=== PATIENT | female | born 1975 | race Caucasian/White ===

== ENCOUNTER 2018-07-11 10:51 | Emergency (ER) | payer SELFPAY ==
[2018-07-11] MEDS ORDERED: ONDA4TAB97 PO (10:57)
[2018-07-11] MEDS ORDERED: CLON0.5T66 PO (10:57)
[2018-07-11] MEDS ORDERED: [UNRECOGNIZED DRUG - OTHER] (11:00)
--- NOTE | 2018-07-11 11:04 | ER Report ---
History and Physical Time Seen By MD: 11:04 Hx. of Stated Complaint: PANIC ATTACK UNRELIEVED BY HOME KLONIPIN HPI/ROS CHIEF COMPLAINT: Abdominal pain, vomiting HISTORY OF PRESENT ILLNESS: 42-year-old female patient presents to emergency room with complaint of abdominal pain, vomiting. Patient states that she's been having this pain since 7:00 this morning. She states it came on very suddenly. She states is nothing that seems to make the pain better or worse. She states she did have some nausea as well as one episode of emesis. She states that she is currently traveling through town as she is from [place]. She denies having any fevers or chills. She states that she's having significant amounts of pain which she rates a 7 out of 10. Patient also is feeling very very anxious likely related to the abdominal pain. She states that she did try some Klonopin at home, however that did not seem to help with her symptoms. REVIEW OF SYSTEMS: Respiratory: No cough, no dyspnea. Cardiovascular: No chest pain, no palpitations. Gastrointestinal: As noted above Musculoskeletal: No back pain. Allergies: Coded Allergies: metoclopramide (Verified Allergy, Intermediate, ANXIETY , 07/11/18) Home Meds Active Scripts Ondansetron (ZOFRAN ODT) 4 Mg Tab.rapdis, 4 MG PO Q6H PRN for NAUSEA/VOMITING, #20 TAB.HEATH Prov:ROLANDA PRAJAPATIP 07/11/18 Reported Medications [Kratum] No Conflict Check 07/11/18 Ondansetron Hcl (ZOFRAN) 4 Mg Tablet, 4 MG PO Q12H, TAB 07/11/18 Clonazepam (KLONOPIN) 0.5 Mg Tablet, 0.5 MG PO BID, #10 TAB 07/11/18 Past Medical/Surgical History Patient has a past medical history of back pain. Patient has a surgical history of back surgery 4, tonsillectomy, hysterectomy, cholecystectomy. Reviewed Nurses Notes: Yes Constitutional Vital Sign - Last 24 Hours 07/11/18 07/11/18 07/11/18 07/11/18 10:54 11:07 11:23 11:25 Temp 98.9 Pulse 83 Resp 18 B/P (MAP) 150/95 121/65 (83) 136/76 (96) 126/94 (105) Pulse Ox 97 O2 Delivery Room Air 07/11/18 07/11/18 07/11/18 07/11/18 11:30 11:35 11:40 11:45 Pulse ??? Resp 25 B/P (MAP) 121/77 (92) 119/82 (94) 120/75 (90) 117/78 (91) 07/11/18 07/11/18 07/11/18 07/11/18 11:50 11:55 12:00 12:05 Pulse 105 Resp 14 B/P (MAP) 113/79 (90) 114/78 (90) 114/78 (90) 113/78 (90) 07/11/18 07/11/18 07/11/18 07/11/18 12:10 12:15 12:20 12:25 B/P (MAP) 112/82 (92) 112/79 (90) 119/68 (85) 109/80 (90) 07/11/18 12:30 Pulse 109 Resp 25 B/P (MAP) 114/82 (93) Physical Exam General Appearance: The patient is anxious, she is unable to sit still, she repeatedly grabs my hands during the examination, has no immediate need for airway protection and no current signs of toxicity. Respiratory: Chest is non tender, lungs are clear to auscultation. Cardiac: regular rate and rhythm Gastrointestinal: Abdomen is soft and tender in the left lower quadrant, no masses, bowel sounds normal. Musculoskeletal: Neck: Neck is supple and non tender. Extremities have full range of motion and are non tender. Skin: No rashes or lesions. DIFFERENTIAL DIAGNOSIS: After history and physical exam differential diagnosis was considered for abdominal pain including but not limited to appendicitis, cholecystitis, gastritis and urinary tract infection. Medical Decision Making Data Points Result Diagram: 07/11/18 1230 07/11/18 1230 Laboratory Hematology Test 07/11/18 12:30 07/11/18 12:35 Red Blood Count 4.77 M/uL (4.17-5.56) Mean Corpuscular Volume 87.8 fL (80.0-96.0) Mean Corpuscular Hemoglobin 30.0 pg (26.0-33.0) Mean Corpuscular Hemoglobin Concent 34.1 g/dL (32.0-36.0) Red Cell Distribution Width 15.0 % (11.5-14.5) Mean Platelet Volume 7.5 fL (7.2-11.1) Neutrophils (%) (Auto) 81.3 % (39.4-72.5) Lymphocytes (%) (Auto) 13.1 % (17.6-49.6) Monocytes (%) (Auto) 5.0 % (4.1-12.4) Eosinophils (%) (Auto) 0.1 % (0.4-6.7) Basophils (%) (Auto) 0.5 % (0.3-1.4) Nucleated RBC Relative Count (auto) 0.0 /100WBC Neutrophils # (Auto) 6.6 K/uL (2.0-7.4) Lymphocytes # (Auto) 1.1 K/uL (1.3-3.6) Monocytes # (Auto) 0.4 K/uL (0.3-1.0) Eosinophils # (Auto) 0.0 K/uL (0.0-0.5) Basophils # (Auto) 0.0 K/uL (0.0-0.1) Nucleated RBC Absolute Count (auto) 0.00 K/uL Sodium Level 134 mmol/L (137-145) Potassium Level 3.8 mmol/L (3.5-5.0) Chloride Level 98 mmol/L (98-107) Carbon Dioxide Level 28 mmol/L (22-31) Blood Urea Nitrogen 6 mg/dl (7-18) Creatinine 0.60 mg/dl (0.52-1.04) Glomerular Filtration Rate Calc > 60.0 Random Glucose 101 mg/dl (75-110) Calcium Level 7.8 mg/dl (8.4-10.2) Total Bilirubin 0.5 mg/dl (0.2-1.3) Aspartate Amino Transf (AST/SGOT) 30 U/L (0-35) Alanine Aminotransferase (ALT/SGPT) 25 U/L (0-56) Alkaline Phosphatase 127 U/L (0-126) Total Protein 6.7 g/dl (6.3-8.2) Albumin 3.8 g/dl (3.5-5.0) Amylase Level 89 U/L (0-110) Lipase 75 U/L (23-300) Urine Color Yellow Urine Clarity Cloudy Urine pH 8.0 pH (4.8-9.5) Urine Specific Michie 1.042 Urine Protein Negative mg/dL (NEGATIVE) Urine Glucose (UA) Negative mg/dL (NEGATIVE) Urine Ketones 20 mg/dL (NEGATIVE) Urine Blood Negative (NEGATIVE) Urine Nitrite Negative (NEGATIVE) Urine Bilirubin Negative (NEGATIVE) Urine Urobilinogen Negative mg/dL (0.2-1.9) Urine Leukocyte Esterase Negative (NEGATIVE) Urine RBC 2 /HPF (0-2/HPF) Urine WBC 1 /HPF (0-5/HPF) Urine Squamous Epithelial Cells Many /LPF (</=FEW) Urine Bacteria Negative /HPF (NONE-FEW) Urine Mucus None /HPF (NONE-FEW) Chemistry Test 07/11/18 12:30 07/11/18 12:35 White Blood Count 8.1 k/uL (4.5-11.0) Red Blood Count 4.77 M/uL (4.17-5.56) Hemoglobin 14.3 g/dL (12.0-16.0) Hematocrit 41.9 % (34.0-47.0) Mean Corpuscular Volume 87.8 fL (80.0-96.0) Mean Corpuscular Hemoglobin 30.0 pg (26.0-33.0) Mean Corpuscular Hemoglobin Concent 34.1 g/dL (32.0-36.0) Red Cell Distribution Width 15.0 % (11.5-14.5) Platelet Count 349 K/uL (150-450) Mean Platelet Volume 7.5 fL (7.2-11.1) Neutrophils (%) (Auto) 81.3 % (39.4-72.5) Lymphocytes (%) (Auto) 13.1 % (17.6-49.6) Monocytes (%) (Auto) 5.0 % (4.1-12.4) Eosinophils (%) (Auto) 0.1 % (0.4-6.7) Basophils (%) (Auto) 0.5 % (0.3-1.4) Nucleated RBC Relative Count (auto) 0.0 /100WBC Neutrophils # (Auto) 6.6 K/uL (2.0-7.4) Lymphocytes # (Auto) 1.1 K/uL (1.3-3.6) Monocytes # (Auto) 0.4 K/uL (0.3-1.0) Eosinophils # (Auto) 0.0 K/uL (0.0-0.5) Basophils # (Auto) 0.0 K/uL (0.0-0.1) Nucleated RBC Absolute Count (auto) 0.00 K/uL Glomerular Filtration Rate Calc > 60.0 Calcium Level 7.8 mg/dl (8.4-10.2) Total Bilirubin 0.5 mg/dl (0.2-1.3) Aspartate Amino Transf (AST/SGOT) 30 U/L (0-35) Alanine Aminotransferase (ALT/SGPT) 25 U/L (0-56) Alkaline Phosphatase 127 U/L (0-126) Total Protein 6.7 g/dl (6.3-8.2) Albumin 3.8 g/dl (3.5-5.0) Amylase Level 89 U/L (0-110) Lipase 75 U/L (23-300) Urine Color Yellow Urine Clarity Cloudy Urine pH 8.0 pH (4.8-9.5) Urine Specific Michie 1.042 Urine Protein Negative mg/dL (NEGATIVE) Urine Glucose (UA) Negative mg/dL (NEGATIVE) Urine Ketones 20 mg/dL (NEGATIVE) Urine Blood Negative (NEGATIVE) Urine Nitrite Negative (NEGATIVE) Urine Bilirubin Negative (NEGATIVE) Urine Urobilinogen Negative mg/dL (0.2-1.9) Urine Leukocyte Esterase Negative (NEGATIVE) Urine RBC 2 /HPF (0-2/HPF) Urine WBC 1 /HPF (0-5/HPF) Urine Squamous Epithelial Cells Many /LPF (</=FEW) Urine Bacteria Negative /HPF (NONE-FEW) Urine Mucus None /HPF (NONE-FEW) Urinalysis Test 07/11/18 12:35 Urine Color Yellow Urine Clarity Cloudy Urine pH 8.0 pH (4.8-9.5) Urine Specific Michie 1.042 Urine Protein Negative mg/dL (NEGATIVE) Urine Glucose (UA) Negative mg/dL (NEGATIVE) Urine Ketones 20 mg/dL (NEGATIVE) Urine Blood Negative (NEGATIVE) Urine Nitrite Negative (NEGATIVE) Urine Bilirubin Negative (NEGATIVE) Urine Urobilinogen Negative mg/dL (0.2-1.9) Urine Leukocyte Esterase Negative (NEGATIVE) Urine RBC 2 /HPF (0-2/HPF) Urine WBC 1 /HPF (0-5/HPF) Urine Squamous Epithelial Cells Many /LPF (</=FEW) Urine Bacteria Negative /HPF (NONE-FEW) Urine Mucus None /HPF (NONE-FEW) EKG/Imaging Imaging COMPUTED TOMOGRAPHY OF THE Abdomen and Pelvis with CONTRAST INDICATION: Abdominal pain. TECHNIQUE: Contiguous axial 3.[address] images were obtained through the abdomen and pelvis with [id number]. Coronal and sagittal reformatted images were submitted. COMPARISON: None. FINDINGS: Lung bases: Clear Liver and hepatic vasculature: No focal liver lesion. Mild fatty infiltration adjacent to falciform. No ascites. Gallbladder and bile ducts: Surgically absent gallbladder. Prominence of the common bile duct in keeping with cholecystectomy. There is also mild intrahepatic biliary duct dilation. An obstructive mass or stone is not identified. Spleen: Normal Pancreas: Normal Adrenals: Normal Kidneys, ureters and bladder: Nonobstructive 3-4 mm left renal calculus versus cortical calcification. Symmetric renal enhancement. No hydronephrosis. Normal- appearing bladder. Retroperitoneum and aorta: Mild aortic atherosclerosis. No aneurysm. No intraperitoneal adenopathy. GI tract, mesentery and peritoneum: Part of the abdomen is blurred by motion including the right lower quadrant, but the appendix appears normal. No free fluid or free air. Uterus and adnexa: Surgically absent uterus. Bones and soft tissues: No acute osseous abnormality. Anterior fusion hardware spans L5-S1, and there is also a device between the spinous processes at this level. IMPRESSION: The source of acute abdominal pain is not forthcoming. One of the following dose optimization techniques was utilized in the performance of this exam: Automated exposure control; adjustment of the mA and/or kV according to the patient's size; or use of an iterative reconstruction technique. Specific details can be referenced in the facility's radiology CT exam operational policy. Report Dictated By: Silverio Carmen MD at 07/11/2018 12:20 PM Report E-Signed By: Silverio Carmen MD at 07/11/2018 12:28 PM ED Course/Re-evaluation ED Course Patient was medicated exam room, history and physical were obtained. Differential diagnoses were considered. On examination patient was very anxious, she continued, hamstring the evaluation. An IV was started, CBC, CMP and urinalysis were done. A CT scan of abdomen and pelvis was done as she is complaining of significant abdominal pain. Although there was no obvious abdominal pain on my physical exam. The lab results were unremarkable, the CT scan of abdomen and pelvis was negative. Discuss findings with the patient. I discussed with her that I believe that she was likely withdrawing from opioids. She states that she had felt that as well and did take Kratom home this morning to see if that would help. She states that did not seem to help. I discussed with her that I was going to let her go home although was going to send her with a prescription for some nausea medication. Patient requested that she be admitted to the hospital and allowed stay overnight to help that she felt she is not ready. I discussed with her that I did not find any admittable diagnosis. She requested something more for anxiety. Patient does have a prescription of Klonopin I did not feel that it was appropriate to prescribe more benzodiazepines at this time. She is to follow-up with her primary care provider upon returning to [place]. Patient verbalized understanding of plan. Decision to Disposition Date: Jul 11, 2018 Decision to Disposition Time: 12:59 Depart Departure Latest Vital Signs Vital Signs Date Time Temp Pulse Resp B/P (MAP) Pulse Ox O2 Delivery O2 Flow Rate FiO2 07/11/18 12:30 109 25 114/82 (93) 07/11/18 10:54 98.9 97 Room Air Impression: Primary Impression: Gastroenteritis Condition: Improved Disposition: HOME OR SELF-CARE New Scripts Ondansetron (ZOFRAN ODT) 4 Mg Tab.rapdis 4 MG PO Q6H PRN for NAUSEA/VOMITING, #20 TAB.HEATH Prov: ROLANDA PRAJAPATI 07/11/18 Patient Instructions: Gastroenteritis (ED) Additional Instructions: Increase fluid intake. Clear liquid diet for the next 24-48 hours. After that you may advance diet as tolerated starting with complex carbohydrates; rice, bread or pasta. Follow up with your primary care provider in the next week. Return to the ER if condition worsens. You may take over the counter Pepto Bismol as needed for cramping, diarrhea and discomfort. ROLANDA PRAJAPATI Jul 11, 2018 11:04
[2018-07-11] MEDS ORDERED: NS(*) 0.9% 1000 ML BAG 1,000 ML IV ONE (11:11)
[2018-07-11] MEDS ORDERED: ONDANSETRON 4 MG/2 ML VIAL IVP ONE (11:15)
[2018-07-11] MEDS ORDERED: KETOROLAC 15 MG/ML VIAL IVP ONE (11:15)
[2018-07-11] MEDS ORDERED: LORazepam 2 MG/ML VIAL IVP ONE (11:15)
[2018-07-11] MEDS ORDERED: IOPAMIDOL 76% 75 ML INFUS BTL 75 ML ONE (11:37)
[2018-07-11 12:30] VITALS: BP 114/82
--- NOTE | 2018-07-11 12:33 | RADIOLOGY IMAGING REPORT ---
FACILITY: [facility] PATIENT NAME: Guero Bradshaw : 1975 MR: [id number] V: [id number] EXAM DATE: ORDERING PHYSICIAN: ROLANDA PRAJAPATI TECHNOLOGIST: Location: [facility] Patient: Guero Bradshaw : 1975 Visit/Account:[id number] Date of Sevice: 07/11/2018 COMPUTED TOMOGRAPHY OF THE Abdomen and Pelvis with CONTRAST INDICATION: Abdominal pain. TECHNIQUE: Contiguous axial 3.[address] images were obtained through the abdomen and pelvis with Isovu [id number]. Coronal and sagittal reformatted images were submitted. COMPARISON: None. FINDINGS: Lung bases: Clear Liver and hepatic vasculature: No focal liver lesion. Mild fatty infiltration adjacent to falciform. No ascites. Gallbladder and bile ducts: Surgically absent gallbladder. Prominence of the common bile duct in melanie ping with cholecystectomy. There is also mild intrahepatic biliary duct dilation. An obstructive mass or stone is not identified. Spleen: Normal Pancreas: Normal Adrenals: Normal Kidneys, ureters and bladder: Nonobstructive 3-4 mm left renal calculus versus cortical calcificatio n. Symmetric renal enhancement. No hydronephrosis. Normal-appearing bladder. Retroperitoneum and aorta: Mild aortic atherosclerosis. No aneurysm. No intraperitoneal adenopathy. GI tract, mesentery and peritoneum: Part of the abdomen is blurred by motion including the right lowe r quadrant, but the appendix appears normal. No free fluid or free air. Uterus and adnexa: Surgically absent uterus. Bones and soft tissues: No acute osseous abnormality. Anterior fusion hardware spans L5-S1, and there is also a device between the spinous processes at this level. IMPRESSION: The source of acute abdominal pain is not forthcoming. One of the following dose optimization techniques was utilized in the performance of this exam: Autom ated exposure control; adjustment of the mA and/or kV according to the patient's size; or use of an i terative reconstruction technique. Specific details can be referenced in the facility's radiology C T exam operational policy. Report Dictated By: Silverio Carmen MD at 07/11/2018 12:20 PM Report E-Signed By: Silverio Carmen MD at 07/11/2018 12:28 PM WSN:[id number]
[2018-07-11 12:39] LABS: PLATELET COUNT, AUTOMATED 349 K/uL (150-450)
[2018-07-11] MEDS ORDERED: ONDA4TAB PO (12:59)
[2018-07-11] MEDS ORDERED: ONDANSETRON 4 MG ODT TABDP SL ONE (13:00)
== END 2018-07-11 13:03 | disposition home or self-care (01) ==
LOC: ER 10:57
DX: K52.9 Noninfective gastroenteritis and colitis, unspecified (principal)
CPT/HCPCS: 36415; 74177; 81001; 82150; 83690; 85025; 96361; 96374; 96375; 99284; J1885; J2060; J2405; J7030; Q9967; 82040; 82247; 82310; 82374; 82435; 82565; 82947; 84075; 84132; 84155; 84295; 84450; 84460; 84520